=== PATIENT | male | born 1990 | race Two or more races ===

== ENCOUNTER 2017-09-19 18:44 | Emergency (ER) | payer OTHER ==
[~2017-09-19] VITALS: Ht 185.4 cm; Wt 131.5 kg
[2017-09-19 19:16] VITALS: BP 130/68
[2017-09-19] MEDS ORDERED: SULFAMETH/TRIMETH 800/160 MG 1 UDTAB TABLET PO ONE ×2 (20:13→20:30)
== END 2017-09-19 20:44 | disposition home or self-care (01) ==
LOC: ER 18:52
DX: L02.416 Cutaneous abscess of left lower limb (principal); Z60.2 Problems related to living alone
CPT/HCPCS: 10060; 82962; 99283; A4606; Z7610